=== PATIENT | male | born 1970 | race American Indian/Alaskan Native ===

== ENCOUNTER 2020-07-20 20:28 | Emergency (ER) | payer SELFPAY ==
[2020-07-21] MEDS ORDERED: ONDANSETRON 4 MG ODT TAB PO ONE (00:20)
[2020-07-21] MEDS ORDERED: FAMOTIDINE 20 MG TAB PO ONE (00:20)
[2020-07-21] MEDS ORDERED: SUCRALFATE 1 GM/10 ML ORAL LIQD PO ONE (00:20)
--- NOTE | 2020-07-21 00:21 | Emergency Department Report ---
<VICKEY PRESSLEY - Last Filed: 07/21/20 02:41> ED General Adult HPI - General Chief complaint: Pain General Stated complaint: COUGH UP BLOOD Time Seen by Provider: 07/21/20 00:09 - Related Data Previous Rx's Medication Instructions Recorded Last Taken Type Azithromycin [Zithromax TAB] 250 mg PO QDAY #4 tablet 07/21/20 Unknown Rx Allergies Allergy/AdvReac Type Severity Reaction Status Date / Time loperamide [From Imodium A-D] Allergy Unknown Verified 07/20/20 21:05 ED Past Medical Hx - Medications Home Medications: Home Medications Medication Instructions Recorded Confirmed Last Taken Type Azithromycin [Zithromax TAB] 250 mg PO QDAY #4 tablet 07/21/20 Unknown Rx ED Course - Reevaluation(s) Reevaluation #4: 07/21/20 02:41 Patient signed out to me by Dr. Kimmy Kauffman to follow-up on patient's CTA r esults. CTA is negative for PE but shows multiple pleural based parenchymal densities in the right lung. Viral pneumonia versus inflammatory process. Will cover with antibiotics. ED Medical Decision Making - Lab Data Result diagrams: 07/21/20 00:57 07/21/20 00:57 ED Disposition Clinical Impression: Right-sided chest pain, History of hemoptysis Disposition: DC/TX-65 PSY HOSP/PSY UNIT Is pt being admited?: No Condition: Stable Instructions: Nonspecific Chest Pain, Adult, Community-Acquired Pneumonia, Adult Additional Instructions: Recommend that patient not take Motrin, ibuprofen, Naprosyn, Aleve. Avoid consumption of alcohol, tobacco and smoke products. Do not take metformin medication for the next 48 hours, if patient takes this medication. Advance diet as tolerated. No emergent condition was identified today while in the emergency room. Please have a primary care doctor contact medical records department to obtain copies of laboratory studies and radiology studies to follow-up on nonemergent incidental findings. Please return to the emergency room right away with new pain, worsened pain, migration of pain, projectile vomiting, change in mental status, confusion, inability to tolerate liquid feeds, new, worsened or different symptoms not present on the initial emergency room evaluation. Prescriptions: Azithromycin [Zithromax TAB] 250 mg PO QDAY #4 tablet Referrals: JAIME KHAN MD [Staff Physician] - 3-5 Days [facility] [Provider Group] - 3-5 Days <MAX MARTINEZ - Last Filed: 07/22/20 07:19> ED General Adult HPI - General PUI?: No Source: patient, RN notes reviewed, old records reviewed Mode of arrival: Ambulatory Limitations: No Limitations - History of Present Illness Initial comments: The patient was evaluated in the emergency department for symptoms described in the history of present illness. He/she was evaluated in the context of the global COVID-19 pandemic, which necessitated consideration that the patient might be at risk for infection with the virus that causes COVID-19. Institutional protocols and algorithms that pertain to the evaluation of patients at risk for COVID-19 are in a state of rapid change based on infor mation released by regulatory bodies including the CDC and federal and state organizations. These policies and algorithms were followed during the patient's care in the emergency department. Please note that these policies, procedures and recommendations changed on a rapid basis. The patient is a 49-year-old gentleman. The patient was recently admitted to [facility], and was intubated. He has since been extubated, and transferred to a local psychiatric facility. He has reportedly been in the care of a psychiatric facility for the past 24 hours. Patient is sent to the [facility] room for medical clearance because of reported post extubation hemoptysis. Patient believes he was intubated a few weeks ago, and has been extubated for over a week. He reports right-sided chest tightness, which increases with inspiration, and coughing up blood. He reports that he had COVID-19 in the middle of the Covid pandemic in 2019. He denies headache, neck pain, abdominal pain, urinary symptoms, suicidality or homicidality at this time. He reports a few episodes of diarrhea which have since resolved. He also reports some pain with swallowing. He reports that he brought these concerns up to his treating physician at [facility], but does not further expand on how these were addressed or treated. -: days(s) Consistency: intermittent Improves with: none Worsens with: none ED Review of Systems ROS: Stated complaint: COUGH UP BLOOD Other details as noted in HPI Constitutional: denies: fever Eyes: denies: vision change ENT: denies: epistaxis Respiratory: cough Cardiovascular: chest pain (Right-sided chest) Gastrointestinal: diarrhea. denies: abdominal pain Musculoskeletal: denies: back pain Hematological/Lymphatic: denies: easy bleeding ED Past Medical Hx - Past Medical History Previous Medical History?: No - Surgical History Past Surgical History?: No ED Physical Exam - General Limitations: No Limitations General appearance: alert, in no apparent distress - Head Head exam: Present: atraumatic, normocephalic - Eye Eye exam: Present: normal appearance, EOMI. Absent: nystagmus - ENT ENT exam: Present: normal exam, normal orophraynx, mucous membranes moist, normal external ear exam - Neck Neck exam: Present: normal inspection, full ROM. Absent: tenderness, meni ngismus - Respiratory Respiratory exam: Present: normal lung sounds bilaterally. Absent: respiratory distress, wheezes, rales, rhonchi, stridor, decreased breath sounds - Cardiovascular Cardiovascular Exam: Present: regular rate, normal rhythm, normal heart sounds. Absent: bradycardia, tachycardia, irregular rhythm, systolic murmur, diastolic murmur, rubs, gallop - GI/Abdominal GI/Abdominal exam: Present: soft. Absent: distended, tenderness, guarding, rebound, rigid, pulsatile mass - Rectal Rectal exam: Present: deferred - Extremities Exam Extremities exam: Present: normal inspection, full ROM, other (2+ pulses noted in the bilateral upper and lower extremities. There is no palpable cord. n egative Homans sign. Muscular compartments are soft. The pelvis is stable.). Absent: pedal edema, joint swelling, calf tenderness - Back Exam Back exam: Present: normal inspection, full ROM. Absent: tenderness, CVA tenderness (R), CVA tenderness (L), paraspinal tenderness, vertebral tenderness - Neurological Exam Neurological exam: Present: alert, normal gait, other (No facial droop. Tongue midline. Extraocular movements intact bilaterally. Facial sensation intact to light touch in V1, V2, V3 distribution bilaterally. 5 and a 5 strength in 4 extremities. Sensation intact to light touch in 4 extremities.). Absent: motor sensory deficit - Psychiatric Psychiatric exam: Present: flat affect - Skin Skin exam: Present: warm, dry, intact, normal color. Absent: rash ED Course Vital Signs 07/20/20 07/20/20 07/21/20 21:05 21:13 00:19 Temperature 98 F Pulse Rate 98 H 94 H Respiratory 16 17 18 Rate Blood Pressure 122/92 118/89 [Left] O2 Sat by Pulse 99 98 98 Oximetry 07/21/20 02:20 Temperature Pulse Rate 91 H Respiratory 17 Rate Blood Pressure 123/86 [Left] O2 Sat by Pulse 98 Oximetry - Reevaluation(s) Reevaluation #1: 07/21/20 00:46 Differential diagnosis, including but not limited to: Bronchitis, bronchiectasis, pneumonia, pulmonary embolism Assessment and plan: 49-year-old gentleman, who is not currently tachycardic, tachypneic or hypoxic, low risk by Wells criteria for pulmonary embolism, who is speaking in full sentences without stridor or dysphonia, with a normal oroph aryngeal examination, no sinus tenderness, no nasal bleeding, with no active hemoptysis, nausea, vomiting or diarrhea at this time. Patient at low risk for major adverse cardiac event as per heart score. Given recent report of admission and hospitalization, perform swallow screen, give oral antiemetics and analgesia, x-ray the chest negative for acute findings, and check appropriate laboratory studies including D-dimer. Reassess after initial data points. Reevaluation #2: 07/21/20 01:30 Patient tolerated swallow screen without difficulty. No active vomiting. Vital signs within normal limits. Laboratory studies pending. Care will be transferred to the oncoming/overnight ER physician, Dr. Barbara Pressley, to follow-up on laboratory studies, and arrange appropriate disposition. If no emergent findings identified which we anticipate, and if D-dimer negative, or positive and CTA chest is required, and if ultimately found to be negative for acute findings, it would be reasonable to discharge this patient to his psychiatric facility. Clinically, I do not suspect an emergent pathology at this time which would require admission to the hospital. Reevaluation #3: 07/21/20 01:36 No active vomiting. Passed swallow screen. D-dimer elevated. CT scan chest ordered. Dr. Pressley to follow-up on CT scan chest and remainder of laboratory studies. ED Medical Decision Making - Lab Data Result diagrams: 07/21/20 00:57 07/21/20 00:57 Vital Signs 07/20/20 07/21/20 21:05 00:19 Temperature 98 F Pulse Rate 98 H 94 H Respiratory 16 18 Rate Blood Pressure 122/92 118/89 [Left] O2 Sat by Pulse 99 98 Oximetry - EKG Data -: EKG Interpreted by Me EKG shows normal: sinus rhythm Rate: normal - EKG Data When compared to previous EKG there are: previous EKG unavailable 07/21/20 00:45 EKG interpreted at 12: 20 7 AM Sinus rhythm, 92 bpm. Normal axis, normal intervals, high left ventricular vol tage, nonspecific T wave inversion V2 and V3. Abnormal EKG. Not a STEMI. No prior for comparison. - Radiology Data Radiology results: report reviewed, image reviewed interpreted by me: 1 view x-ray of the chest is negative for acute findings. [facility] [address] [place] [address] Cat Scan Report Signed Patient: MOISES CARMEN MR#: [id number] : 1970 Acct:[id number] Age/Sex: 49 / M ADM Date: 07/20/20 Loc: ED Attending Dr: Ordering Physician: MAX MARTINEZ MD Date of Service: 07/21/20 Procedure(s): CT angio chest Accession Number(s): [id number] cc: MAX MARTINEZ MD CTA CHEST WITH IV CONTRAST INDICATION / CLINICAL INFORMATION: Hemoptysis, right-sided ch est pressure. TECHNIQUE: Axial CT images were obtained through the chest after injection of 100 cc IV contrast. 3 plane MIP and/or 3D reconstructions were produced. All CT scans at this location are performed using CT dose reduction for [facility] by means of automated exposure control. COMPARISON: Chest radiograph earlier today FINDINGS: PULMONARY ARTERIES: No pulmonary emboli. THORACIC AORTA: No significant abnormality. HEART: No significant abnormality. CORONARY ARTERIES: No significant calcification. PLEURA: No pleural effusion. No pneumothorax. LYMPH NODES: No significant adenopathy. LUNGS: There are focal pleural-based areas of parenchymal densities throughout the right lung mostly within the right lower lobe posteriorly and also within the right middle lobe anteriorly. The left lung is clear. There are no pleural effusions present. ADDITIONAL FINDINGS: None. UPPER ABDOMEN: No acute findings. SKELETAL STRUCTURES: No significant acute osseous abnormality. IMPRESSION: 1. No CT evidence for pulmonary embolism. 2. Multiple pleural-based parenchymal densities are present within the right lung . It is unclear if these are infectious or inflammatory in nature. Viral pneumonia is within the differential. Signer Name: Vero Duque MD Signed: 07/21/2020 2:22 AM Workstation Name: [id number] Transcribed By: JR Dictated By: Vero Duque MD Electronically Authenticated By: Vero Duque MD Signed Date/Time: 07/21/20221 DD/ 1 Critical care attestation.: If time is entered above; I have spent that time in minutes in the direct care of this critically ill patient, excluding procedure time. ED Disposition Is pt being admited?: No Does the pt Need Aspirin: No
--- NOTE | 2020-07-21 00:47 | XRay Report ---
CHEST 1 VIEW INDICATION / CLINICAL INFORMATION: hemoptysis. COMPARISON: None available. FINDINGS: SUPPORT DEVICES: None. HEART / MEDIASTINUM: No significant abnormality. LUNGS / PLEURA: No significant pulmonary or pleural abnormality. No pneumothorax. ADDITIONAL FINDINGS: No significant additional findings. IMPRESSION: 1. No acute findings. Signer Name: Vero Duque MD Signed: 07/21/2020 12:43 AM Workstation Name: [id number]
[2020-07-21 01:16] LABS: Hematocrit 39.9 % (35.5-45.6); Hemoglobin 13.1 gm/dl (11.8-15.2); Mean Corpuscular HGB Conc 33 % (32-34); Mean Corpuscular Volume 91 fl (84-94); Platelet Count 379 K/mm3 (140-440); Red Cell Distribution Width 13.5 % (13.2-15.2)
[2020-07-21 01:31] LABS: INR 1.03 (0.87-1.13)
[2020-07-21 01:36] LABS: Blood Urea Nitrogen 12 mg/dL (9-20); Calcium 8.8 mg/dL (8.4-10.2); Hemolysis Index 8
[2020-07-21 01:38] LABS: BUN/Creatinine Ratio 20
[2020-07-21 02:22] VITALS: BP 123/86
--- NOTE | 2020-07-21 02:27 | Cat Scan Report ---
CTA CHEST WITH IV CONTRAST INDICATION / CLINICAL INFORMATION: Hemoptysis, right-sided chest pressure. TECHNIQUE: Axial CT images were obtained through the chest after injection of 100 cc IV contrast. 3 plane MIP an d/or 3D reconstructions were produced. All CT scans at this location are performed using CT dose redu ction for [facility] by means of automated exposure control. COMPARISON: Chest radiograph earlier today FINDINGS: PULMONARY ARTERIES: No pulmonary emboli. THORACIC AORTA: No significant abnormality. HEART: No significant abnormality. CORONARY ARTERIES: No significant calcification. PLEURA: No pleural effusion. No pneumothorax. LYMPH NODES: No significant adenopathy. LUNGS: There are focal pleural-based areas of parenchymal densities throughout the right lung mostly within the right lower lobe posteriorly and also within the right middle lobe anteriorly. The left mercedez ng is clear. There are no pleural effusions present. ADDITIONAL FINDINGS: None. UPPER ABDOMEN: No acute findings. SKELETAL STRUCTURES: No significant acute osseous abnormality. IMPRESSION: 1. No CT evidence for pulmonary embolism. 2. Multiple pleural-based parenchymal densities are present within the right lung . It is unclear if these are infectious or inflammatory in nature. Viral pneumonia is within the differential. Signer Name: Vero Duque MD Signed: 07/21/2020 2:22 AM Workstation Name: [id number]
[2020-07-21] MEDS ORDERED: AZITHROMYCIN 250 MG TAB PO ONE (02:35)
--- NOTE | 2020-07-22 10:38 | Electrocardiograph Report ---
[facility] Test Date: 2020-07-21 Test Time: 00:27:45 Pat Name: MOISES CARMEN Department: Room: Gender: M [place] Worker: ANGE : 1970 Requested By: MAX MARTINEZ Order Number: [id number] Reading MD: Humphrey Jane Measurements Intervals [place] Rate: 92 P: 84 DE: 138 QRS: 92 QRSD: 103 T: 67 QT: 332 QTc: 410 Interpretive Statements Sinus rhythm ST elev, probable normal early repol pattern No previous ECG available for comparison Electronically Signed On 07-22-2020 10:38:19 EDT by Humphrey Jane
== END 2020-07-21 06:16 ==
LOC: ED 20:28
DX: R07.89 Other chest pain (principal); R04.2 Hemoptysis; Z88.8 Allergy status to other drugs, medicaments and biological substances
CPT/HCPCS: 36415; 71045; 71275; 80048; 82550; 83735; 84484; 85027; 85379; 85610; 93005; 99284; Q9967; 80320; G0480; Q0162